=== PATIENT | male | born 1995 | race Caucasian/White ===

== ENCOUNTER 2022-04-04 15:07 | Emergency (ER) | payer OTHER, SELFPAY ==
[2022-04-04 15:10] VITALS: BP 119/71; PULSE 62; RESP 18; TEMP 37.1; O2SAT 98
--- NOTE | 2022-04-04 15:18 | ED.WOUNDLAC ---
HPI - Wound/Laceration General Chief Complaint: Wound/Laceration Stated Complaint: finger laceration Time Seen by Provider: 04/04/22 15:11 Source: patient Mode of arrival: ambulatory History of Present Illness HPI narrative: 26-year-old male with no significant past medical history presents to the ER with -- left ring finger 3 cm superficial laceration on the palmar aspect of the middle phalanx of ring finger. he slashed it with a razor while cutting some kind of tape. No other injuries noted. Profuse bleeding. Onset (ago): minute(s) ( 30 minutes ago.) Location: other ( Left ring finger) Place: work Patient tetanus UTD: Yes Context: accidental Associated symptoms: pain Treatments prior to arrival: bandage Related Data Allergies Allergy/AdvReac Type Severity Reaction Status Date / Time No Known Allergies Allergy Verified 04/04/22 15:13 Review of Systems Review of Systems: All systems reviewed & are unremarkable except as noted in HPI and below Exam Const: General: cooperative and healthy appearing Nutritional Appearance: average body habitus HENMT: Head: normal to inspection, No palpable skull fracture present, normocephalic and atraumatic Face/Nose/Sinus: Normal external nose present Face and sinus: normal facial exam Mouth: Yes Normal oral and palatal mucosa present Throat: posterior oropharynx normal Eyes: General: appearance normal, both eyes and all related structures Neck: Neck: normal visual inspection, full ROM and no lymphadenopathy Chest: Chest palpation & inspection: normal inspection of the chest Resp: Effort & Inspection: normal respiratory effort Auscultation: clear to auscultation bilaterally Cardio: Jugular venous distension: no JVD Rate: regular rate Rhythm: regular rhythm Heart sounds: S1 normal heart sound present and S2 normal heart sound present GI: Inspection: normal to inspection Auscultation: normal bowel sounds : General: Yes bimanual renal exam normal bilaterally Back/Spine/Pelvis: Back: no CVA tenderness Skin: General skin exam: normal color Lesions: no lesions ( 3 cm laceration over the left ring finger palmar aspect.) Neuro: General: oriented to person, oriented to place, oriented to time and patient oriented x3 Speech: normal speech Gait exam (Neuro): Normal gait present Extrem: General: normal to inspection, full ROM and capillary refill normal Hand/finger images: 1. 3 cm laceration on the palmar aspect of the left ring finger. Normal range of motion at the proximal and the distal interphalangeal joint. Psych: Appearance: grossly normal and well kempt Affect: normal affect Attitude: cooperative Course Course Emergency Course: Left ring finger laceration- placed Dermabond tying a tonic it to the base of the finger. profuse bleeding stops. Vital Signs Vital signs: Vital Signs Temperature 37.1 C 04/04/22 15:10 Pulse Rate 62 04/04/22 15:10 Respiratory Rate 18 04/04/22 15:10 Blood Pressure 119/71 04/04/22 15:10 Pulse Oximetry 98 04/04/22 15:10 Oxygen Delivery Room Air 04/04/22 15:10 Temperature 37.1 C 04/04/22 15:10 Pulse Rate 62 04/04/22 15:10 Respiratory Rate 18 04/04/22 15:10 Blood Pressure 119/71 04/04/22 15:10 Pulse Oximetry 98 04/04/22 15:10 Oxygen Delivery Room Air 04/04/22 15:10 Procedures Laceration Laceration 1: Date: 04/04/22 Time: 15:25 Site: other ( left ring finger) Side (If applicable): left Size (cm): 3 Description: linear Depth: simple, single layer Pre-repair: wound explored ====== Skin Level ====== Skin layer closed with: dermabond ====== Subcutaneous Layer ====== ====== Muscle Layer ====== ====== Tendon Layer ====== MDM - Wound/Laceration MDM Narrative Medical decision making narrative: Finger laceration profuse bleeding Differential Diagnosis Differential diagnosis: Likely
--- NOTE | 2022-04-04 15:29 | PC.NURSE ---
Splint applied after wound was cleaned and glued by EMILIO MOONEY.
--- NOTE | 2022-04-04 15:34 | PC.NURSE ---
Pt states tip of his 4th finger is numb. Pt has good capillary refill of less than two seconds. Pt told nursing staff they could move their finger like normal it just caused pain 8/10, aching. Pt finger was clean, glued, and splinted. Pt told nursing staff he had a tetanus vaccine within the last year.
== END 2022-04-04 15:55 | disposition home or self-care (01) ==
LOC: CHSED 15:39
PROVIDERS: Emergency Provider Internal Medicine Critical Care Medicine
DX: S61.215A Laceration without foreign body of left ring finger without damage to nail, initial encounter (principal); W26.9XXA Contact with unspecified sharp object(s), initial encounter
CPT/HCPCS: 12002; 99283